=== PATIENT | male | born 1995 | race Native Hawaiian/Other Pacific Islander ===

== ENCOUNTER 2017-02-27 14:33 | Emergency (ER) | payer OTHER ==
[2017-02-27 15:01] VITALS: TEMP 98.4; O2SAT 99
[2017-02-27] MEDS ORDERED: Sodium Chloride 0.9% 1,000 ML IV ONE (16:06)
--- NOTE | 2017-02-27 16:17 | C.PDOC ---
History Of Present Illness 22 y/o male presents to ED with complaint of left sided flank pain that started yesterday. Patient notes he took Motrin without relief at 14:00 today. Notes history of kidney stones and that current pain feels similar. Patient states he urinated this morning but has since has been unable to. Patient reports pain radiates to the abdomen. Denies fevers, vomiting, diarrhea, urinary symptoms, or other complaints. Patient with history of hypertension and does not take any medications for it, notes he has been trying diet and weight management. Time Seen by Provider: 02/27/17 15:50 Chief Complaint (Nursing): Male Genitourinary History Per: Patient History/Exam Limitations: no limitations Onset/Duration Of Symptoms: Days Current Symptoms Are (Timing): Still Present Quality Of Discomfort: "Pain" Associated Symptoms: denies: Fever, Chills, Nausea, Vomiting, Diarrhea, Urinary Symptoms Recent travel outside of the [place]: No Past Medical History Reviewed: Historical Data, Nursing Documentation, Vital Signs Vital Signs: Last Vital Signs Temp 98.4 F 02/27/17 14:58 Pulse 84 02/27/17 17:57 Resp 20 02/27/17 17:57 BP 141/84 02/27/17 17:57 Pulse Ox 99 02/27/17 18:27 - Medical History PMH: Asthma, HTN Family History: States: Unknown Family Hx - Social History Hx Alcohol Use: Yes Hx Substance Use: No Review Of Systems Except As Marked, All Systems Reviewed And Found Negative. Constitutional: Negative for: Fever, Chills Cardiovascular: Negative for: Chest Pain Respiratory: Negative for: Cough, Shortness of Breath Gastrointestinal: Positive for: Abdominal Pain. Negative for: Nausea, Vomiting Musculoskeletal: Positive for: Back Pain Skin: Negative for: Rash Neurological: Negative for: Weakness, Numbness Physical Exam - Physical Exam Appears: Non-toxic, No Acute Distress Skin: Normal Color, Warm, Dry Head: Atraumatic, Normacephalic Eye(s): bilateral: Normal Inspection, EOMI Nose: Normal Oral Mucosa: Moist Chest: Symmetrical Cardiovascular: Rhythm Regular Respiratory: Normal Breath Sounds, No Rales, No Rhonchi, No Wheezing Gastrointestinal/Abdominal: Soft, No Tenderness, No Guarding, No Rebound Back: CVA Tenderness (L), No Vertebral Tenderness, Paraspinal Tenderness (left sided lumbar) Extremity: Normal ROM, Capillary Refill (< 2 sec.) Neurological/Psych: Oriented x3, Normal Speech, Normal Cognition ED Course And Treatment - Laboratory Results Result Diagrams: 02/27/17 16:22 02/27/17 16:22 O2 Sat by Pulse Oximetry: 99 (RA) Pulse Ox Interpretation: Normal - CT Scan/US CT Abdomen/Pelvis Other Rad Studies (CT/US): Read By Radiologist, Radiology Report Reviewed CT/US Interpretation: ABD PELVIS W/O PO OR IV CONT Exam Date: 02/27/17. . This imaging exam was performed at [facility]. EXAM: CT Abdomen and Pelvis Without Intravenous Contrast. . CLINICAL HISTORY: 22 years old, male; Pain; Other: Left flank pain; Patient HX: Prior . . TECHNIQUE: Axial computed tomography images of the abdomen and pelvis without. intravenous contrast. This CT exam was performed using one or more of the. following dose reduction techniques: automated exposure control, adjustment of. the mA and/or kV according to patient size, and/or use of iterative. reconstruction technique. Coronal and sagittal reformatted images were created and reviewed. . EXAM DATE/TIME: Exam ordered 02/27/2017 4:07 PM. . COMPARISON: No relevant prior studies available. . FINDINGS: Lower thorax: No acute findings. . ABDOMEN: Liver: The liver is low in density. The liver measures 17.3 cm in. craniocaudal span at the midaxillary line. . Gallbladder and bile ducts: Unremarkable. No calcified stones. No ductal. dilation. Pancreas: Unremarkable. No ductal dilation. Spleen: Unremarkable. No splenomegaly. Adrenals: Unremarkable. No mass. Kidneys and ureters: There is a 5 mm calculus in the left ureterovesicular. junction. There is mild asymmetric fullness of the left ureter and left renal. collecting system. Stomach and bowel: Unremarkable. No obstruction. No mucosal thickening. Appendix: No findings to suggest acute appendicitis. . PELVIS: Bladder: Unremarkable. No stones. Reproductive: The prostate measures 2.7 x 4 x 3.6 cm. . ABDOMEN and PELVIS: Intraperitoneal space: Trace amount of fluid is noted in the pelvis. No. free air. Bones/joints: No acute fracture. No dislocation. Soft tissues: Unremarkable. Vasculature: Unremarkable. No abdominal aortic aneurysm. Lymph nodes: Unremarkable. No enlarged lymph nodes. . IMPRESSION: 1. 5 mm calculus in the left ureterovesicular junction. Mild left hydroureter. and hydronephrosis. . 2. Hepatic steatosis. Progress Note: Treated with morphine, Zofran, and IVFs. CT abdomen/pelvis and labs ordered, reviewed. Patient is resting comfortably, in no distress, abdomen is soft, no rebound or guarding, and is tolerating PO. Patient was advised to follow up without fail with Dr Houston (urology) or to return to the ER for reevaluation in 1-2 days. Disposition - Disposition Referrals: Nic Houston MD [Staff Provider] - Disposition: HOME/ ROUTINE Disposition Time: 17:38 Condition: STABLE Additional Instructions: Follow up with your primary medical doctor or clinic in 2-5 days for further evaluation. Take medications as prescribed. Return to the emergency department at any time if symptoms persist or worsen. Prescriptions: oxyCODONE/Acetaminophen [Percocet 5/325 mg Tab] 1 tab PO QID PRN #15 tab PRN Reason: Pain Tamsulosin [Flomax] 0.4 mg PO DAILY #10 cap Instructions: Renal Colic (ED) - Clinical Impression Clinical Impression: Renal colic on left side, Nephrolithiasis - PA / OFFICE INSPECTOR / Resident Statement MD/DO has reviewed & agrees with the documentation as recorded. - Scribe Statement The provider has reviewed the documentation as recorded by the Ranjith Chino All medical record entries made by the Ranjith were at my direction and personally dictated by me. I have reviewed the chart and agree that the record accurately reflects my personal performance of the history, physical exam, medical decision making, and the department course for this patient. I have also personally directed, reviewed, and agree with the discharge instructions and disposition.
[2017-02-27] MEDS ORDERED: Morphine 4 MG/ML VIAL ONE ×2 (16:25→17:48)
[2017-02-27 16:29] LABS: BASO % 0.2 % (0.0-2.0); HEMATOCRIT 45.4 % (35.0-51.0); LYMPH # 0.7 K/uL (1.0-4.3); LYMPH % 8.5 % (20.0-40.0); MEAN CELL VOLUME 84.4 fL (80.0-94.0); MEAN CORPUSCULAR HEMOGLOBIN 27.6 pg (27.0-31.0); MEAN CORPUSCULAR HGB CONC 32.7 g/dL (33.0-37.0); MEAN PLATELET VOLUME 8.2 fL (7.2-11.7); MONO # 0.3 K/uL (0.0-0.8); MONO % 4.1 % (0.0-10.0); NRBC % 0.1 % (0.0-2.0); PLATELET COUNT 305 K/uL (130-400); RED CELL DISTRIBUTION WIDTH 13.2 % (11.5-14.5); WHITE BLOOD COUNT 8.5 K/uL (4.8-10.8)
[2017-02-27 16:37] LABS: CHLORIDE 99 mmol/L (98-107); SODIUM 136 mmol/L (132-148)
[2017-02-27 16:39] LABS: BILIRUBIN,TOTAL 1.1 mg/dL (0.2-1.3); CARBON DIOXIDE 24 mmol/L (22-30); GFR AFRICAN-AMERICAN > 60
[2017-02-27 16:40] LABS: ALB/GLOB RATIO 1.5 (1.0-2.1); ALKALINE PHOSPHATASE 32 U/L (38-126); ALT/SGPT 53 U/L (21-72); AST/SGOT 35 U/L (17-59); BLOOD UREA NITROGEN 11 mg/dL (9-20); CALCIUM 9.3 mg/dl (8.6-10.4); GLUCOSE,RANDOM 108 mg/dL (75-110); TOTAL PROTEIN 7.8 g/dL (6.3-8.3)
[2017-02-27 17:14] LABS: RBC URINE 1 /hpf (0-3); URINE BILIRUBIN NEGATIVE (NEGATIVE); URINE BLOOD 3+ (NEGATIVE); URINE COLOR Straw (YELLOW); URINE GLUCOSE (UA) NORMAL (Normal); URINE KETONE TRACE mg/dL (NEGATIVE); URINE LEUKOCYTE ESTERASE NEG Leu/uL (Negative); URINE PROTEIN NEGATIVE (NEGATIVE); URINE UROBILINOGEN NORMAL mg/dL (0.2-1.0); WBC URINE < 1 /hpf (0-5)
--- NOTE | 2017-02-27 17:28 | CT ---
EXAM: CT Abdomen and Pelvis Without Intravenous Contrast CLINICAL HISTORY: 22 years old, male; Pain; Other: Left flank pain; Patient HX: Prior 03/10/13 TECHNIQUE: Axial computed tomography images of the abdomen and pelvis without intravenous contrast. This CT exam was performed using one or more of the following dose reduction techniques: automated exposure control, adjustment of the mA and/or kV according to patient size, and/or use of iterative reconstruction technique. Coronal and sagittal reformatted images were created and reviewed. EXAM DATE/TIME: Exam ordered 02/27/2017 4:07 PM COMPARISON: No relevant prior studies available. FINDINGS: Lower thorax: No acute findings. ABDOMEN: Liver: The liver is low in density. The liver measures 17.3 cm in craniocaudal span at the midaxillary line Gallbladder and bile ducts: Unremarkable. No calcified stones. No ductal dilation. Pancreas: Unremarkable. No ductal dilation. Spleen: Unremarkable. No splenomegaly. Adrenals: Unremarkable. No mass. Kidneys and ureters: There is a 5 mm calculus in the left ureterovesicular junction. There is mild asymmetric fullness of the left ureter and left renal collecting system. Stomach and bowel: Unremarkable. No obstruction. No mucosal thickening. Appendix: No findings to suggest acute appendicitis. PELVIS: Bladder: Unremarkable. No stones. Reproductive: The prostate measures 2.7 x 4 x 3.6 cm. ABDOMEN and PELVIS: Intraperitoneal space: Trace amount of fluid is noted in the pelvis. No free air. Bones/joints: No acute fracture. No dislocation. Soft tissues: Unremarkable. Vasculature: Unremarkable. No abdominal aortic aneurysm. Lymph nodes: Unremarkable. No enlarged lymph nodes. IMPRESSION: 1. 5 mm calculus in the left ureterovesicular junction. Mild left hydroureter and hydronephrosis. 2. Hepatic steatosis
[2017-02-27 17:57] VITALS: BP 141/84; PULSE 84; RESP 20
[2017-02-27 22:44] LABS: LARGE PLATELETS PRESENT; NEUTROPHIL 85 % (50-75); SMUDGE CELLS PRESENT; TOTAL CELLS COUNTED 100
== END 2017-02-27 18:17 | disposition home or self-care (01) ==
LOC: C.ER 14:33
DX: N13.2 Hydronephrosis with renal and ureteral calculous obstruction (principal)
CPT/HCPCS: 74176; 80053; 81001; 83690; 85025; 87086; 96374; 96375; 96376; 99285; J2270; J2405; J7040